=== PATIENT | male | born 1985 | race Caucasian/White ===

== ENCOUNTER 2020-02-06 11:26 | Emergency (ER) | payer OTHER ==
[2020-02-06] MEDS ORDERED: Diphtheria,Pertussis(Acell),Tetanus Vaccine 0.5 ML SDV IM ONE (12:31)
--- NOTE | 2020-02-06 12:33 | EDM.PDOC ---
ED HPI GENERAL MEDICAL PROBLEM - General Chief Complaint: Laceration Stated Complaint: INJURED HIP WHILE USING HIS BOW Time Seen by Provider: 02/06/20 12:00 Source of Information: Reports: Patient History Limitations: Reports: No Limitations - History of Present Illness INITIAL COMMENTS - FREE TEXT/NARRATIVE: 34-year-old male with trauma to the lip and upper right gingival area above the canine teeth when his hunting bow recoiled as he was falling forward and struck him in the mouth. No other injury, no loss of consciousness. Onset: Sudden Duration: Hour(s): (Within the last hour) Location: Reports: Face Associated Symptoms: Reports: No Other Symptoms Upper Lip Pain Score (Numeric/FACES): 3 - Related Data Allergies Allergy/AdvReac Type Severity Reaction Status Date / Time No Known Allergies Allergy Verified 02/06/20 11:47 Home Meds: Home Meds NK [No Known Home Meds] 02/06/20 [History] Past Medical History HEENT History: Reports: Impaired Vision - Infectious Disease History Infectious Disease History: Reports: Chicken Pox Social & Family History - Tobacco Use Smoking Status *Q: Never Smoker Second Hand Smoke Exposure: No - Caffeine Use Caffeine Use: Reports: Soda - Alcohol Use Days Per Week of Alcohol Use: 0 - Recreational Drug Use Recreational Drug Use: No ED ROS GENERAL - Review of Systems Review Of Systems: See Below Constitutional: Denies: Fever HEENT: Reports: Dental Pain (Right gingival and canines on the maxilla are painful) Respiratory: Denies: Shortness of Breath GI/Abdominal: Denies: Nausea, Vomiting Psychiatric: Reports: Anxiety ED EXAM, SKIN/RASH Exam: See Below Exam Limited By: No Limitations General Appearance: Alert, No Apparent Distress Throat/Mouth: Other (Patient has a superficial avulsion of an area of gingiva above the right canine area of the maxilla, and also a 1.5 cm laceration through the middle of the upper lip through the vermilion border but not across. ) Course - Vital Signs Last Recorded V/S: Last Vital Signs Temp 98.4 F 02/06/20 11:53 Pulse 82 02/06/20 11:53 Resp 16 02/06/20 11:53 BP 132/80 02/06/20 11:53 Pulse Ox 93 L 02/06/20 11:53 - Orders/Labs/Meds Orders: Active Orders 24 hr Category Date Time Status Vaccines to be Administered [RC] PER UNIT ROUTINE Care 02/06/20 12:31 Active Meds: Medications Discontinued Medications Generic Name Dose Route Start Last Admin Trade Name Lalo PRN Reason Stop Dose Admin Diphtheria/Tetanus/Acell Pertussis 0.5 ml 02/06/20 12:31 02/06/20 12:41 Adacel IM 02/06/20 12:32 0.5 ml .ONCE ONE Administration Lidocaine HCl 5 ml 02/06/20 12:07 02/06/20 12:40 Xylocaine-Mpf 1% INJECT 02/06/20 12:08 5 ml ONETIME ONE Administration - Re-Assessments/Exams Free Text/Narrative Re-Assessment/Exam: 02/06/20 12:33 The area was infiltrated with a small amount of 1% lidocaine, closed with two 5- 0 Vicryl sutures, these will dissolve spontaneously. I suggested a dental evaluation to follow the trauma to the gingiva above the canines although this is likely going to heal without incident. A Tdap booster was given. Departure - Departure Time of Disposition: 13:01 Disposition: Home, Self-Care 01 Clinical Impression: Laceration of gingiva Laceration of lip Qualifiers: Encounter type: initial encounter Qualified Code(s): S01.511A - Laceration without foreign body of lip, initial encounter - Discharge Information Instructions: Facial Laceration, VIS, Tetanus, Diphtheria, and Pertussis (Tdap ) - CDC (01/07/2015) Referrals: PCP,None [Primary Care Provider] - Forms: ED Department Discharge Care Plan Goals: Cool compresses to the area will help with swelling, soft foods for the next several days and a dental evaluation would be worthwhile to follow the healing of the gingival laceration. Return to the emergency room if any further work- up is felt necessary, or recheck anytime if you have infection concerns or do not feel you are healing satisfactorily. The sutures dissolve spontaneously. Sepsis Event Note - Evaluation Sepsis Screening Result: No Definite Risk - Focused Exam Vital Signs: Vital Signs Temp Pulse Resp BP Pulse Ox 02/06/20 11:53 98.4 F 82 16 132/80 93 L Date Exam was Performed: 02/06/20 Time Exam was Performed: 14:32 - My Orders Last 24 Hours: My Active Orders 02/06/20 12:31 Vaccines to be Administered [RC] PER UNIT ROUTINE - Assessment/Plan Last 24 Hours: My Active Orders 02/06/20 12:31 Vaccines to be Administered [RC] PER UNIT ROUTINE
== END 2020-02-06 13:01 | disposition home or self-care (01) ==
LOC: JP.ED 11:26
DX: S01.511A Laceration without foreign body of lip, initial encounter (principal); S01.512A Laceration without foreign body of oral cavity, initial encounter; Z23 Encounter for immunization; W22.8XXA Striking against or struck by other objects, initial encounter
CPT/HCPCS: 12011; 90471; 90715; 99282; J2001

== ENCOUNTER 2020-08-09 08:42 | Emergency (ER) | payer OTHER ==
--- NOTE | 2020-08-09 09:38 | EDM.PDOC ---
ED HPI GENERAL MEDICAL PROBLEM - General Chief Complaint: Genitourinary Problem Stated Complaint: SWOLLEN TESTICAL Time Seen by Provider: 08/09/20 09:25 Source of Information: Reports: Patient History Limitations: Reports: No Limitations - History of Present Illness INITIAL COMMENTS - FREE TEXT/NARRATIVE: 34-year-old male who tends to have recurring epididymitis a couple of times a year especially on the right side. Yesterday he started developing pain and swelling, this morning the swelling is less but the pain is persistent and he usually responds really well to antibiotics so wanted to come in and get those started. No fevers or chills, no dysuria. Onset: Gradual Duration: Hour(s): (Last 24 hours) Location: Reports: Other (Right testicle) Associated Symptoms: Reports: No Other Symptoms - Related Data Allergies Allergy/AdvReac Type Severity Reaction Status Date / Time No Known Allergies Allergy Verified 08/09/20 09:17 Home Meds: Home Meds NK [No Known Home Meds] 02/06/20 [History] Past Medical History HEENT History: Reports: Impaired Vision Genitourinary History: Reports: Other (See Below) Other Genitourinary History: epididymitis - Infectious Disease History Infectious Disease History: Reports: Chicken Pox Social & Family History - Tobacco Use Smoking Status *Q: Never Smoker - Caffeine Use Caffeine Use: Reports: Soda - Recreational Drug Use Recreational Drug Use: No ED ROS GENERAL - Review of Systems Review Of Systems: See Below Constitutional: Denies: Fever, Chills Respiratory: Denies: Shortness of Breath GI/Abdominal: Denies: Abdominal Pain : Denies: Dysuria, Flank Pain, Frequency ED EXAM, RENAL/ - Physical Exam Exam: See Below Exam Limited By: No Limitations General Appearance: Alert, No Apparent Distress Respiratory/Chest: No Respiratory Distress GI/Abdominal: Soft, Non-Tender (Male) Exam: Testicular Tenderness (R), Other (Mild right testicular tenderness and epididymal swelling, no hernia) Course - Vital Signs Last Recorded V/S: Last Vital Signs Temp 96.8 F L 08/09/20 09:20 Pulse 71 08/09/20 09:20 Resp 14 08/09/20 09:20 BP 107/68 08/09/20 09:20 Pulse Ox 95 08/09/20 09:20 - Re-Assessments/Exams Free Text/Narrative Re-Assessment/Exam: 08/09/20 09:37 Patient will be placed on ciprofloxacin 500 mg twice daily for 5 consecutive days, repeat as necessary or recheck in 2 to 3 days if not improving satisfactorily. Return sooner if worsening despite treatment. Departure - Departure Time of Disposition: 09:45 Disposition: Home, Self-Care 01 Clinical Impression: Epididymitis, right - Discharge Information Instructions: Epididymitis Referrals: PCP,None [Primary Care Provider] - Forms: ED Department Discharge Care Plan Goals: Take antibiotic twice daily for at least face, increase activity as tolerated and recheck in 2 to 3 days if not improving satisfactorily. Return sooner if worsening such as fever, increased pain or swelling despite treatment. Sepsis Event Note (ED) - Evaluation Sepsis Screening Result: No Definite Risk - Focused Exam Vital Signs: Vital Signs Temp Pulse Resp BP Pulse Ox 08/09/20 09:20 96.8 F L 71 14 107/68 95
== END 2020-08-09 09:45 | disposition home or self-care (01) ==
LOC: JP.ED 08:42
DX: N45.1 Epididymitis (principal)
CPT/HCPCS: 99283